=== PATIENT | male | born 1960 | race Hispanic/Latino ===

== ENCOUNTER 2020-06-02 14:26 | Emergency (ER) | payer MEDICARE ==
[~2020-06-02] VITALS: Ht 167.6 cm; Wt 89.4 kg
== END 2020-06-02 15:16 | disposition home or self-care (01) ==
LOC: ER 14:40
DX: N47.1 Phimosis (principal); I12.0 Hypertensive chronic kidney disease with stage 5 chronic kidney disease or end stage renal disease; E11.22 Type 2 diabetes mellitus with diabetic chronic kidney disease; N18.6 End stage renal disease; Z99.2 Dependence on renal dialysis
CPT/HCPCS: 99282

== ENCOUNTER 2020-06-13 03:01 | Emergency (ER) | payer MEDICARE ==
[~2020-06-13] VITALS: Ht 167.6 cm; Wt 89.4 kg
[2020-06-13 05:42] VITALS: BP 146/58
== END 2020-06-13 05:30 | disposition home or self-care (01) ==
LOC: ER 03:23
DX: S42.002A Fracture of unspecified part of left clavicle, initial encounter for closed fracture (principal); W06.XXXA Fall from bed, initial encounter; Y93.84 Activity, sleeping; Y92.003 Bedroom of unspecified non-institutional (private) residence as the place of occurrence of the external cause; I12.0 Hypertensive chronic kidney disease with stage 5 chronic kidney disease or end stage renal disease; E11.22 Type 2 diabetes mellitus with diabetic chronic kidney disease; N18.6 End stage renal disease; Z99.2 Dependence on renal dialysis; Z86.718 Personal history of other venous thrombosis and embolism; Z86.79 Personal history of other diseases of the circulatory system
CPT/HCPCS: 70450; 71045; 72125; 99283